=== PATIENT | female | born 1980 | race Hispanic/Latino ===

== ENCOUNTER 2017-12-24 04:18 | Emergency (ER) | payer SELFPAY ==
[~2017-12-24] VITALS: Ht 160 cm; Wt 68.9 kg
[~2017-12-24 04:18] MED LIST: IBUPROFEN800 MG PO; MOTRIN600 MG PO; MOTRIN800 MG PO; PRENATAL TABLE1 EAC3 PO; TYLENOL EXTRA500 MG PO
[2017-12-24 05:51] LABS: ALBUMIN 3.8 g/dL (3.2-4.8); CHLORIDE 110 mEq/L (99-109); POTASSIUM 3.5 mEq/L (3.7-5.4); SODIUM 139 mEq/L (136-147)
[2017-12-24 05:53] LABS: GLUCOSE 87 mg/dL (70-99); TOTAL PROTEIN 6.6 g/dL (6.4-8.3)
[2017-12-24 05:55] LABS: TOTAL BILIRUBIN 0.4 mg/dL (0.0-1.0)
[2017-12-24 05:57] LABS: ALKALINE PHOSPHATASE 65 IU/L (3-129); CREATININE 0.7 mg/dL (0.6-1.3); GFR ESTIMATE (CALCULATED) > 59 mL/min/
[2017-12-24 05:58] LABS: AST (GOT) 28 IU/L (2-34); HEMATOCRIT 36.8 % (36.0-46.0); MCH 28.6 PG (29.0-34.0); MCHC 32.6 G/DL (30.0-36.0); MCV 87.6 FL (83-99); PLATELET COUNT 206 K/uL (156-360); RBC DIS.WIDTH-CV 12.7 % (11.8-14.6); RBC DIS.WIDTH-SD 41.1 % (39-53); UREA NITROGEN (BUN) 16 mg/dL (9-23); WHITE BLOOD COUNT 3.9 K/uL (4.1-10.2)
[2017-12-24 06:00] LABS: ALT (GPT) 18 IU/L (3-49); LIPASE 18 U/L (1.0-51.0)
[2017-12-24 06:01] LABS: TROP-I INTERPRETATION NEGATIVE; TROPONIN-I 0.01 ng/mL (0.0-0.30)
[2017-12-24 06:06] LABS: QUANTITATIVE HCG < 4.0 MIU/ML
[2017-12-24] MEDS ORDERED: PRILOSEC20 MG PO (06:24)
[2017-12-24 07:10] VITALS: BP 116/71
== END 2017-12-24 07:22 | disposition home or self-care (01) ==
LOC: EME 04:18
PROVIDERS: Emergency Medicine Emergency Medical Services
DX: K21.9 Gastro-esophageal reflux disease without esophagitis (principal); R10.10 Upper abdominal pain, unspecified; R11.0 Nausea
CPT/HCPCS: 80053; 83690; 84484; 84702; 85027; 93005; 99281; 99284